=== PATIENT | male | born 1970 | race Caucasian/White ===

== ENCOUNTER 2016-08-11 21:40 | Emergency (ER) | payer BC, OTHER ==
[~2016-08-11] VITALS: Ht 177.8 cm; Wt 113.4 kg
[~2016-08-11 21:40] MED LIST: CEFUROXIME AXE250 MG PO; CLARITIN10 MG PO; CLINDAMYCIN HC300 MG PO; FLAGYL500 MG PO; FLOMAX0.4 MG PO; HYDROCODONE BIT1 T11 PO; LEVOFLOXACIN500 MG PO; NATURE'S BLEND F1 MG PO; PERCOCET 325 MG1 TA3 PO; PERCOCET 325 MG1 TA5 PO; PERCOCET 325 MG1 TA7 PO; PROBIOTIC250 MG PO; SIMVASTATIN40 MG PO; SULFASALAZINE500 M1 PO; [UNRECOGNIZED DRUG - OTHER] PO
[2016-08-11 21:54] VITALS: BP 152/86
[2016-08-11 22:52] LABS: BASO # 0.1 10*3/uL (0.0-0.1); BASO % 0.4 % (0.0-1.0); EOS # 0.2 10*3/uL (0.0-0.4); EOS % 1.7 % (1.0-4.0); HEMATOCRIT 45.3 % (42.0-52.0); HEMOGLOBIN 15.4 g/dl (14.0-18.0); LYMPH # 2.7 10*3/uL (1.3-4.4); LYMPH % 20.2 % (27.0-41.0); MEAN CELL VOLUME 86.8 fl (80.0-94.0); MEAN CORPUSCULAR HGB 29.5 pg (27.0-31.0); MEAN PLATELET VOLUME 10.5 fl (9.6-12.3); MONO # 1.4 10*3/uL (0.1-1.0); MONO % 10.4 % (3.0-9.0); NEUT # 9.1 10*3/uL (2.3-7.9); NEUT % 67.1 % (47.0-73.0); PLATELET COUNT AUTOMATED 237 10*3/uL (130-400); RED BLOOD COUNT 5.22 10*6/uL (4.50-5.90); RED CELL DISTRI WIDTH 13.2 % (0-14.5); WHITE BLOOD COUNT 13.5 10*3/uL (4.8-10.8)
[2016-08-11 23:04] LABS: BUN 13 mg/dl (7-24); C-REACTIVE PROTEIN 3.64 MG/DL (0-0.3); CARBON DIOXIDE 25 mmol/L (21-32); CHLORIDE 109 mmol/L (98-107); EST GLOM FILT AFRICAN AMERICAN > 60 ml/min; GLUCOSE 101 mg/dL (65-99); POTASSIUM 3.6 mmol/L (3.5-5.1); SODIUM 142 mmol/L (136-145); URIC ACID 6.5 mg/dL (3.5-7.2)
[2016-08-12] MEDS ORDERED: NORCO 5-325 TA1 EACH PO (00:18)
[2016-08-12] MEDS ORDERED: CEFDINIR300 MG PO (00:18)
[2016-08-12] MEDS ORDERED: PROBIOTIC1 EAC2 PO (00:18)
[2016-08-12] MEDS ORDERED: BACTRIM DS 8001 TA1 PO (00:18)
== END 2016-08-12 00:47 | disposition home or self-care (01) ==
LOC: ED 21:40
PROVIDERS: Emergency Medicine Emergency Medical Services
DX: L03.114 Cellulitis of left upper limb (principal); F17.200 Nicotine dependence, unspecified, uncomplicated; E78.5 Hyperlipidemia, unspecified; Z90.49 Acquired absence of other specified parts of digestive tract; Z79.899 Other long term (current) drug therapy

== ENCOUNTER 2016-08-13 21:54 | Inpatient (IN) | payer BC, OTHER ==
[~2016-08-13] VITALS: Ht 177.8 cm; Wt 118.6 kg
[~2016-08-13 21:54] MED LIST changes: +BACTRIM DS 8001 TA1 PO; +CEFDINIR300 MG PO; +NORCO 5-325 TA1 EACH PO; +PROBIOTIC1 EAC2 PO
[2016-08-13 22:18] VITALS: BP 151/87
[2016-08-13 23:03] LABS: BASO # 0.1 10*3/uL (0.0-0.1); BASO % 0.4 % (0.0-1.0); EOS # 0.2 10*3/uL (0.0-0.4); EOS % 1.6 % (1.0-4.0); HEMATOCRIT 41.9 % (42.0-52.0); HEMOGLOBIN 13.9 g/dl (14.0-18.0); LYMPH # 2.5 10*3/uL (1.3-4.4); LYMPH % 22.1 % (27.0-41.0); MEAN CELL VOLUME 88.8 fl (80.0-94.0); MEAN CORPUSCULAR HGB 29.4 pg (27.0-31.0); MEAN CORPUSCULAR HGB CONC 33.2 g/dl (33.0-37.0); MEAN PLATELET VOLUME 10.7 fl (9.6-12.3); MONO # 0.9 10*3/uL (0.1-1.0); MONO % 8.4 % (3.0-9.0); NEUT # 7.5 10*3/uL (2.3-7.9); NEUT % 67.2 % (47.0-73.0); PLATELET COUNT AUTOMATED 214 10*3/uL (130-400); RED BLOOD COUNT 4.72 10*6/uL (4.50-5.90); RED CELL DISTRI WIDTH 13.2 % (0-14.5); WHITE BLOOD COUNT 11.1 10*3/uL (4.8-10.8)
[2016-08-13 23:19] LABS: ALBUMIN 3.3 gm/dl (3.1-4.5); ALKALINE PHOSPHATASE 81 U/L (45-117); BILIRUBIN, TOTAL 0.2 mg/dl (0.2-1.0); BUN 16 mg/dl (7-24); CARBON DIOXIDE 27 mmol/L (21-32); CHLORIDE 108 mmol/L (98-107); EST GLOM FILT AFRICAN AMERICAN > 60 ml/min; GLUCOSE 111 mg/dL (65-99); POTASSIUM 4.3 mmol/L (3.5-5.1); SGOT/AST 19 IU/L (3-35); SGPT/ALT 19 U/L (12-78); SODIUM 143 mmol/L (136-145)
[2016-08-13 23:50] VITALS: BP 151/89
[2016-08-14 06:03] LABS: BASO % 0.4 % (0.0-1.0); EOS # 0.2 10*3/uL (0.0-0.4); EOS % 2.1 % (1.0-4.0); HEMATOCRIT 43.5 % (42.0-52.0); HEMOGLOBIN 14.3 g/dl (14.0-18.0); LYMPH % 28.3 % (27.0-41.0); MEAN CELL VOLUME 89.9 fl (80.0-94.0); MEAN CORPUSCULAR HGB 29.5 pg (27.0-31.0); MEAN CORPUSCULAR HGB CONC 32.9 g/dl (33.0-37.0); MEAN PLATELET VOLUME 10.8 fl (9.6-12.3); MONO # 0.9 10*3/uL (0.1-1.0); MONO % 8.8 % (3.0-9.0); NEUT # 6.3 10*3/uL (2.3-7.9); NEUT % 60.1 % (47.0-73.0); PLATELET COUNT AUTOMATED 215 10*3/uL (130-400); RED BLOOD COUNT 4.84 10*6/uL (4.50-5.90); RED CELL DISTRI WIDTH 13.1 % (0-14.5); WHITE BLOOD COUNT 10.5 10*3/uL (4.8-10.8)
[2016-08-14 06:22] LABS: ALKALINE PHOSPHATASE 76 U/L (45-117); BILIRUBIN, TOTAL 0.4 mg/dl (0.2-1.0); BUN 15 mg/dl (7-24); CARBON DIOXIDE 25 mmol/L (21-32); CHLORIDE 110 mmol/L (98-107); CHOLESTEROL 200 mg/dL (<200); EST GLOM FILT AFRICAN AMERICAN > 60 ml/min; FREE T4 1.08 ng/dl (0.76-1.46); GLUCOSE 85 mg/dL (65-99); HDL CHOLESTEROL 36 mg/dl (40-60); LDL CHOLESTEROL 147 mg/dL (9-159); MAGNESIUM 2.2 mg/dL (1.5-2.1); PHOSPHOROUS 3.5 mg/dL (2.5-4.9); SGOT/AST 15 IU/L (3-35); SGPT/ALT 19 U/L (12-78); SODIUM 144 mmol/L (136-145); TOTAL PROTEIN 6.6 gm/dL (6.4-8.2); TRIGLYCERIDES 86 mg/dl (<150); VLDL CHOLESTEROL 17 mg/dL (6-40)
[2016-08-14 06:35] LABS: INTERNATIONAL NORM RATIO 0.9 (2.0-3.5); PROTHROMBIN TIME 9.5 SECONDS (9.0-12.4)
[2016-08-14 07:32] LABS: HEMOGLOBIN A1c 5.6 % (4.8-5.6)
[2016-08-14 08:00] VITALS: BP 136/77
[2016-08-14 09:17] LABS: FOLIC ACID 11.11 ng/mL (>5.38); VITAMIN D, 25-HYDROXY 19.6 ng/mL (30-100)
[2016-08-14 12:00] VITALS: BP 115/63
[2016-08-14 16:00] VITALS: BP 121/64
[2016-08-14 20:00] VITALS: BP 128/66
[2016-08-15] VITALS: BP 109/57
[2016-08-15 08:00] VITALS: BP 151/84
[2016-08-15 12:00] VITALS: BP 130/66
[2016-08-15] MEDS ORDERED: DALVANCE500 MG IV (15:55)
[2016-08-15 16:00] VITALS: BP 144/83
[2016-08-15 20:00] VITALS: BP 155/82
[2016-08-16] VITALS: BP 115/59
[2016-08-16 08:00] VITALS: BP 138/88
[2016-08-16] MEDS ORDERED: DALVANCE500 MG IV (13:14)
[2016-08-16] MEDS ORDERED: BACTRIM DS 8001 TAB PO (13:16)
[2016-08-16] MEDS ORDERED: D-1000 185 MG-11 TAB PO (13:16)
== END 2016-08-16 13:57 | disposition home or self-care (01) | DRG 872 ==
LOC: ED 21:54 → EDHOLD 23:11 → 4E 23:46
PROVIDERS: Emergency Medicine Emergency Medical Services; Family Medicine; Internal Medicine
PROC: 0R9M3ZX Drainage of Left Elbow Joint, Percutaneous Approach, Diagnostic (ICD-10-PCS; principal; 2016-08-15)
DX: A41.9 Sepsis, unspecified organism (principal); K51.00 Ulcerative (chronic) pancolitis without complications; L03.114 Cellulitis of left upper limb; D72.810 Lymphocytopenia; F17.200 Nicotine dependence, unspecified, uncomplicated; F17.210 Nicotine dependence, cigarettes, uncomplicated; R73.9 Hyperglycemia, unspecified; E66.01 Morbid (severe) obesity due to excess calories; M70.22 Olecranon bursitis, left elbow; Z80.42 Family history of malignant neoplasm of prostate; Z79.899 Other long term (current) drug therapy; Z90.49 Acquired absence of other specified parts of digestive tract; Z71.6 Tobacco abuse counseling; Z68.37 Body mass index [BMI] 37.0-37.9, adult

== ENCOUNTER 2017-04-10 00:17 | Inpatient (IN) | payer BC, OTHER ==
[~2017-04-10] VITALS: Ht 177.8 cm; Wt 121.2 kg
--- NOTE | ~2017-04-10 | O ---
[place], [place] OPERATIVE NOTE [id number] UN[facility] #: [id number] ROOM: 526 DOCTOR: ANKIT RODRIGUEZMADAI BIRTHDATE: [birth year] DOS: 04/11/2017 HISTORY OF PRESENT ILLNESS: The patient was admitted with abdominal pain, radiation of pain to his testicular sac and quite distressed with diarrhea cramp, abdominal pain, known with a history of ulcerative colitis, has been on balsalazide 750 mg 2 tablets t.i.d. He has not been that compliant with his medical therapy. He has been admitted with a workup of CT scan of abdomen and pelvis included and was found to have a fatty mucosal infiltrate, sequelae chronic inflammation and pericolonic stranding, no abscess formation. His lactic acid was 0.7. His white blood cell initially was 13 with H and H of 14 and 41. Comprehensive metabolic panel was within normal limits. GFR greater than 60, of course C-reactive protein elevated troponin normal. Chest x-ray, of course, was no infiltrated pathology. His urinalysis on the other hand was evaluated because of his pelvic pain and negative urine. PROCEDURE: Today's procedure part of investigation is colonoscopy plus biopsies. PREMEDICATION: Versed and Diprivan. SCOPE: Olympus folding colonoscope 10L video. REPORT: After putting the patient in left lateral position and application of lubricant to the scope, the scope was introduced. Thereafter, under direct visualization, advanced through the length of colon without difficulty. Base of the cecum explored, appendiceal orifice identified, ileocecal valve was defined and photographed. Multiple biopsies from numerous ulcerations in the right side of the colon was obtained. Evidence of intense colitis exists in the right side consistent with ulcerative colitis and it is reduced as I withdraw the scope towards the rectum. ADDENDUM As I recall, this patient 2 years ago has had a colonoscopy and he had roblero-ulcerative colitis and his degree of intensity of colitis at the present time is far better than past colonoscopic evaluation. IMPRESSION: Ulcerative colitis with most intense expression on the ascending colon and partially in transverse colon with presence of colitis throughout the colon without any ulcerations on the left side. PLAN AND DISCUSSION: The patient is going to stay on balsalazide 2 tablets 750 mg 3 times a day. The patient's epididymitis is going to be addressed with Vibramycin and we are going to remain fearful of the fact that he may end up with Clostridium difficile colitis as a complication in order to at least cover for such a mishap. We are going to keep the patient on Florastor 250 mg p.o. b.i.d. and hoping that Clostridium difficile would not happen. As far as his diet is concerned, he is going to be back on his soft diet and as far as antibiotic coverage is going to be, we are going to keep him on metronidazole 500 mg t.i.d. Otherwise, we are going to avoid other antibiotics if possible. [place], [place] OPERATIVE NOTE NAME: KASH BUTT UNIT #: [id number] ROOM: 526 DOCTOR: ANKIT RODRIGUEZ,MADAI BIRTHDATE: [birth year] Thank you very much indeed for your kind referral. MADAI PHAM MD CM:OPRECORD:OPERATIVE NOTE [id number] MADAI PHAM MD 04/11/17 1758 interface
--- NOTE | ~2017-04-10 | O ---
[place], [place] OPERATIVE NOTE NAME: KASH BUTT UNIT #: [id number] ROOM: 526 DOCTOR: ANKIT RODRIGUEZ,MADAI BIRTHDATE: [birth year] DOS: ADDENDUM As I recall, this patient 2 years ago has had a colonoscopy and he had roblero-ulcerative colitis and his degree of intensity of colitis at the present time is far better than past colonoscopic evaluation. IMPRESSION: Ulcerative colitis with most intense expression on the ascending colon and partially in transverse colon with presence of colitis throughout the colon without any ulcerations on the left side. PLAN AND DISCUSSION: The patient is going to stay on balsalazide 2 tablets 750 mg 3 times a day. The patient's epididymitis is going to be addressed with Vibramycin and we are going to remain fearful of the fact that he may end up with Clostridium difficile colitis as a complication in order to at least cover for such a mishap. We are going to keep the patient on Florastor 250 mg p.o. b.i.d. and hoping that Clostridium difficile would not happen. As far as his diet is concerned, he is going to be back on his soft diet and as far as antibiotic coverage is going to be, we are going to keep him on metronidazole 500 mg t.i.d. Otherwise, we are going to avoid other antibiotics if possible. Thank you very much indeed for your kind referral. MADAI PHAM MD CM:OPRECORD:OPERATIVE NOTE [id number] MADAI PHAM MD 04/11/17 2365 interface
[~2017-04-10 00:17] MED LIST changes: +BACTRIM DS 8001 TAB PO; +D-1000 185 MG-11 TAB PO; +DALVANCE500 MG IV
[2017-04-10 00:29] VITALS: BP 161/98
[2017-04-10 01:01] LABS: BASO # 0.1 10*3/uL (0.0-0.1); BASO % 0.6 % (0.0-1.0); EOS # 0.3 10*3/uL (0.0-0.4); HEMATOCRIT 41.9 % (42.0-52.0); HEMOGLOBIN 14.4 g/dl (14.0-18.0); LYMPH # 2.4 10*3/uL (1.3-4.4); LYMPH % 17.8 % (27.0-41.0); MEAN CELL VOLUME 87.3 fl (80.0-94.0); MEAN CORPUSCULAR HGB CONC 34.4 g/dl (33.0-37.0); MEAN PLATELET VOLUME 9.8 fl (9.6-12.3); MONO # 1.2 10*3/uL (0.1-1.0); NEUT # 9.4 10*3/uL (2.3-7.9); NEUT % 70.3 % (47.0-73.0); PLATELET COUNT AUTOMATED 376 10*3/uL (130-400); RED CELL DISTRI WIDTH 12.3 % (0-14.5); WHITE BLOOD COUNT 13.4 10*3/uL (4.8-10.8)
[2017-04-10 01:23] LABS: ALKALINE PHOSPHATASE 95 U/L (45-117); CHLORIDE 102 mmol/L (98-107); CREATININE 1.03 mg/dL (0.70-1.30); POTASSIUM 3.5 mmol/L (3.5-5.1); SGOT/AST 23 IU/L (3-35); SGPT/ALT 31 U/L (12-78); SODIUM 137 mmol/L (136-145); TOTAL PROTEIN 7.6 gm/dL (6.4-8.2)
[2017-04-10 01:25] LABS: BUN 16 mg/dl (7-24)
[2017-04-10 01:30] LABS: TROPONIN I < 0.015 ng/ml (<0.045)
[2017-04-10 02:04] LABS: BILIRUBIN NEGATIVE (NEGATIVE); BLOOD NEGATIVE (NEGATIVE); CLARITY SL CLOUDY (CLEAR); COLOR YELLOW (YELLOW); GLUCOSE NEGATIVE (NEGATIVE); KETONE NEGATIVE (NEGATIVE); LEUKO ESTERASE NEGATIVE (NEGATIVE); NITRITE NEGATIVE (NEGATIVE); UROBILINOGEN 0.2 E.U./dl (0.2-1.0)
[2017-04-10 02:10] LABS: MUCOUS TRACE; RBC 0-2 rbc/hpf (0-2); WBC 0-2 wbc/hpf (0-5)
[2017-04-10 02:30] VITALS: BP 150/70
[2017-04-10 03:00] VITALS: BP 124/72
[2017-04-10 04:18] LABS: BASO # 0.1 10*3/uL (0.0-0.1); BASO % 0.5 % (0.0-1.0); EOS # 0.2 10*3/uL (0.0-0.4); EOS % 1.5 % (1.0-4.0); LYMPH # 2.3 10*3/uL (1.3-4.4); LYMPH % 15.8 % (27.0-41.0); MEAN CELL VOLUME 87.6 fl (80.0-94.0); MEAN CORPUSCULAR HGB 29.2 pg (27.0-31.0); MEAN CORPUSCULAR HGB CONC 33.3 g/dl (33.0-37.0); MEAN PLATELET VOLUME 9.6 fl (9.6-12.3); MONO # 1.1 10*3/uL (0.1-1.0); MONO % 7.8 % (3.0-9.0); NEUT # 10.5 10*3/uL (2.3-7.9); PLATELET COUNT AUTOMATED 347 10*3/uL (130-400); RED BLOOD COUNT 4.45 10*6/uL (4.50-5.90); RED CELL DISTRI WIDTH 12.2 % (0-14.5); WHITE BLOOD COUNT 14.2 10*3/uL (4.8-10.8)
[2017-04-10 04:44] LABS: ALBUMIN 2.8 gm/dl (3.1-4.5); ALKALINE PHOSPHATASE 84 U/L (45-117); BUN 15 mg/dl (7-24); CHLORIDE 104 mmol/L (98-107); CHOLESTEROL 206 mg/dL (<200); CREATININE 0.95 mg/dL (0.70-1.30); HDL CHOLESTEROL 28 mg/dl (40-60); LDL CHOLESTEROL 150 mg/dL (9-159); PHOSPHOROUS 3.7 mg/dL (2.5-4.9); POTASSIUM 4.1 mmol/L (3.5-5.1); SGOT/AST 21 IU/L (3-35); SGPT/ALT 27 U/L (12-78); SODIUM 137 mmol/L (136-145); TOTAL PROTEIN 6.8 gm/dL (6.4-8.2); TRIGLYCERIDES 138 mg/dl (<150); VLDL CHOLESTEROL 28 mg/dL (6-40)
[2017-04-10 07:08] LABS: VITAMIN D, 25-HYDROXY 15.6 ng/mL (30-100)
[2017-04-10 08:00] VITALS: BP 126/74
[2017-04-10] MEDS ORDERED: SULFASALAZINE500 M1 PO (11:06)
[2017-04-10] MEDS ORDERED: BALSALAZIDE DI750 MG PO (11:13)
[2017-04-10 12:00] VITALS: BP 129/55
[2017-04-10 16:00] VITALS: BP 100/57
[2017-04-11] VITALS (9 sets, daily range): BP systolic 99–137; BP diastolic 53–86
[2017-04-11 06:51] LABS: BASO # 0.1 10*3/uL (0.0-0.1); BASO % 0.5 % (0.0-1.0); EOS # 0.2 10*3/uL (0.0-0.4); EOS % 2.2 % (1.0-4.0); HEMATOCRIT 38.2 % (42.0-52.0); HEMOGLOBIN 12.5 g/dl (14.0-18.0); LYMPH # 1.3 10*3/uL (1.3-4.4); LYMPH % 13.1 % (27.0-41.0); MEAN CELL VOLUME 87.8 fl (80.0-94.0); MEAN CORPUSCULAR HGB 28.7 pg (27.0-31.0); MEAN CORPUSCULAR HGB CONC 32.7 g/dl (33.0-37.0); MEAN PLATELET VOLUME 9.8 fl (9.6-12.3); MONO % 9.5 % (3.0-9.0); NEUT # 7.5 10*3/uL (2.3-7.9); NEUT % 74.3 % (47.0-73.0); PLATELET COUNT AUTOMATED 323 10*3/uL (130-400); RED BLOOD COUNT 4.35 10*6/uL (4.50-5.90); RED CELL DISTRI WIDTH 12.2 % (0-14.5); WHITE BLOOD COUNT 10.1 10*3/uL (4.8-10.8)
[2017-04-11 07:04] LABS: BUN 7 mg/dl (7-24); CHLORIDE 103 mmol/L (98-107); POTASSIUM 3.9 mmol/L (3.5-5.1); SODIUM 137 mmol/L (136-145)
[2017-04-12] VITALS: BP 100/54
[2017-04-12 07:15] LABS: BASO # 0.1 10*3/uL (0.0-0.1); BASO % 0.6 % (0.0-1.0); EOS # 0.2 10*3/uL (0.0-0.4); EOS % 2.3 % (1.0-4.0); HEMATOCRIT 39.4 % (42.0-52.0); HEMOGLOBIN 13.3 g/dl (14.0-18.0); LYMPH # 1.6 10*3/uL (1.3-4.4); LYMPH % 15.8 % (27.0-41.0); MEAN CELL VOLUME 87.8 fl (80.0-94.0); MEAN CORPUSCULAR HGB 29.6 pg (27.0-31.0); MEAN CORPUSCULAR HGB CONC 33.8 g/dl (33.0-37.0); MEAN PLATELET VOLUME 9.7 fl (9.6-12.3); MONO % 9.6 % (3.0-9.0); NEUT # 7.4 10*3/uL (2.3-7.9); NEUT % 71.4 % (47.0-73.0); PLATELET COUNT AUTOMATED 328 10*3/uL (130-400); RED BLOOD COUNT 4.49 10*6/uL (4.50-5.90); RED CELL DISTRI WIDTH 12.2 % (0-14.5); WHITE BLOOD COUNT 10.4 10*3/uL (4.8-10.8)
[2017-04-12 08:00] VITALS: BP 134/73
[2017-04-12 12:00] VITALS: BP 138/92
[2017-04-12 16:00] VITALS: BP 122/78
[2017-04-12 20:00] VITALS: BP 121/74
[2017-04-13] VITALS: BP 110/69
[2017-04-13 08:00] VITALS: BP 120/69
[2017-04-13 12:00] VITALS: BP 148/74
[2017-04-13] MEDS ORDERED: VITAMIN D5000 UNI1 PO (12:32)
[2017-04-13] MEDS ORDERED: FLAGYL500 MG PO (12:32)
[2017-04-13] MEDS ORDERED: FLORASTOR250 MG PO (12:32)
[2017-04-13] MEDS ORDERED: DOXYCYCLINE100 M3 PO (12:32)
[2017-04-13] MEDS ORDERED: PREDNISONE10 MG PO (12:33)
== END 2017-04-13 13:33 | disposition home or self-care (01) | DRG 872 ==
LOC: ED 00:17 → EDHOLD 02:32 → 5E 02:32 → EDBEDREQ 02:38 → EDBEDREQSVC 02:38 → 5E 02:39
PROVIDERS: Family Medicine; Hospitalist; Student in an Organized Health Care Education/Training Program
PROC: 0DBE8ZX Excision of Large Intestine, Via Natural or Artificial Opening Endoscopic, Diagnostic (ICD-10-PCS; principal; 2017-04-11)
DX: A41.9 Sepsis, unspecified organism (principal); K51.919 Ulcerative colitis, unspecified with unspecified complications; E66.9 Obesity, unspecified; R73.9 Hyperglycemia, unspecified; F17.200 Nicotine dependence, unspecified, uncomplicated; Z80.42 Family history of malignant neoplasm of prostate; Z71.6 Tobacco abuse counseling; Z90.49 Acquired absence of other specified parts of digestive tract; Z72.89 Other problems related to lifestyle; Z68.38 Body mass index [BMI] 38.0-38.9, adult

== ENCOUNTER → 2018-06-02 | Day surgery (SDC) | payer BC, OTHER ==
[2018-05-29 09:47] LABS: BASO # 0.1 10*3/uL (0.0-0.1); BASO % 0.6 % (0.0-1.0); EOS # 0.2 10*3/uL (0.0-0.4); EOS % 2.2 % (1.0-4.0); HEMATOCRIT 49.9 % (42.0-52.0); HEMOGLOBIN 15.9 g/dl (14.0-18.0); LYMPH # 2.4 10*3/uL (1.3-4.4); LYMPH % 28.1 % (27.0-41.0); MEAN CELL VOLUME 89.3 fl (80.0-94.0); MEAN CORPUSCULAR HGB 28.4 pg (27.0-31.0); MEAN CORPUSCULAR HGB CONC 31.9 g/dl (33.0-37.0); MEAN PLATELET VOLUME 10.3 fl (9.6-12.3); MONO # 0.6 10*3/uL (0.1-1.0); MONO % 6.7 % (3.0-9.0); NEUT # 5.2 10*3/uL (2.3-7.9); PLATELET COUNT AUTOMATED 282 10*3/uL (130-400); RED BLOOD COUNT 5.59 10*6/uL (4.50-5.90); RED CELL DISTRI WIDTH 12.9 % (0-14.5); WHITE BLOOD COUNT 8.4 10*3/uL (4.8-10.8)
[2018-05-29 10:11] LABS: BUN 19 mg/dl (7-24); CHLORIDE 105 mmol/L (98-107); CREATININE 1.07 mg/dL (0.70-1.30); POTASSIUM 4.4 mmol/L (3.5-5.1); SODIUM 139 mmol/L (136-145)
[~2018-06-02] VITALS: Ht 177.8 cm; Wt 128.8 kg
[~2018-06-02] MED LIST changes: +BALSALAZIDE DI750 MG PO; +DOXYCYCLINE100 M3 PO; +FLORASTOR250 MG PO; +PREDNISONE10 MG PO; +TRAMADOL HCL50 MG PO; +VITAMIN D5000 UNI1 PO
[2018-06-02 11:54] VITALS: BP 131/100
[2018-06-02 13:33] VITALS: BP 135/78
[2018-06-02 13:48] VITALS: BP 124/77
[2018-06-02 14:03] VITALS: BP 130/83
[2018-06-02 14:37] VITALS: BP 136/88
== END | disposition home or self-care (01) ==
LOC: SDC 05-29 15:30
DX: L72.0 Epidermal cyst (principal); F17.210 Nicotine dependence, cigarettes, uncomplicated; G47.30 Sleep apnea, unspecified; E66.9 Obesity, unspecified; Z68.41 Body mass index [BMI] 40.0-44.9, adult; Z88.0 Allergy status to penicillin; Z88.8 Allergy status to other drugs, medicaments and biological substances; Z79.899 Other long term (current) drug therapy; Z87.442 Personal history of urinary calculi; Z90.49 Acquired absence of other specified parts of digestive tract; Z72.89 Other problems related to lifestyle; Z98.890 Other specified postprocedural states; Z83.3 Family history of diabetes mellitus; Z82.49 Family history of ischemic heart disease and other diseases of the circulatory system

== ENCOUNTER → 2020-03-06 | Outpatient (CLI) | payer BC | END | disposition home or self-care (01) | LOC: COVID19 09:13 | PROVIDERS: ATTEND Family Medicine | DX: U07.1 COVID-19 (principal) ==

== ENCOUNTER → 2020-04-06 | Outpatient (CLI) | payer BC, OTHER ==
[2020-04-06 09:57] LABS: BASO # 0.1 10*3/uL (0.0-0.1); BASO % 0.4 % (0.0-1.0); EOS # 0.1 10*3/uL (0.0-0.4); EOS % 1.1 % (1.0-4.0); HEMATOCRIT 47.2 % (42.0-52.0); LYMPH # 1.9 10*3/uL (1.3-4.4); LYMPH % 16.6 % (27.0-41.0); MEAN CELL VOLUME 90.1 fl (80.0-94.0); MEAN CORPUSCULAR HGB CONC 32.2 g/dl (33.0-37.0); MONO # 0.9 10*3/uL (0.1-1.0); MONO % 7.4 % (3.0-9.0); NEUT # 8.5 10*3/uL (2.3-7.9); NEUT % 74.2 % (47.0-73.0); PLATELET COUNT AUTOMATED 312 10*3/uL (130-400); RED BLOOD COUNT 5.24 10*6/uL (4.50-5.90); RED CELL DISTRI WIDTH 12.6 % (0-14.5); WHITE BLOOD COUNT 11.4 10*3/uL (4.8-10.8)
[2020-04-06 10:04] LABS: BILIRUBIN Negative (Negative); BLOOD Negative (Negative); CLARITY Clear (Clear); COLOR Yellow (Yellow); GLUCOSE Negative (Negative); KETONE Negative (Negative); LEUKO ESTERASE Trace (Negative); NITRITE Negative (Negative); SPECIFIC GRAVITY 1.015 (1.001-1.030); UROBILINOGEN 0.2 E.U./dl (0.0-1.0)
[2020-04-06 10:25] LABS: ALBUMIN 3.2 gm/dl (3.1-4.5); ALKALINE PHOSPHATASE 99 U/L (45-117); BUN 16 mg/dl (7-24); CHLORIDE 106 mmol/L (98-107); CREATININE 0.94 mg/dL (0.70-1.30); POTASSIUM 4.3 mmol/L (3.5-5.1); SGOT/AST 8 IU/L (3-35); SGPT/ALT 21 U/L (12-78); SODIUM 137 mmol/L (136-145); TOTAL PROTEIN 7.6 gm/dL (6.4-8.2)
[2020-04-06 12:01] LABS: BACTERIA TRACE
== END | disposition home or self-care (01) ==
LOC: CT 08:54 → LAB 08:54 → CT 09:00
PROVIDERS: ATTEND Internal Medicine
DX: R10.9 Unspecified abdominal pain (principal)

== ENCOUNTER → 2020-10-31 | Outpatient (CLI) | payer BC ==
[2020-10-31 11:39] LABS: BASO # 0.1 10*3/uL (0.0-0.1); BASO % 0.9 % (0.0-1.0); EOS # 0.1 10*3/uL (0.0-0.4); EOS % 0.7 % (1.0-4.0); HEMATOCRIT 50.3 % (42.0-52.0); LYMPH # 1.6 10*3/uL (1.3-4.4); LYMPH % 16.4 % (27.0-41.0); MEAN CORPUSCULAR HGB 29.9 pg (27.0-31.0); MEAN CORPUSCULAR HGB CONC 33.2 g/dl (33.0-37.0); MEAN PLATELET VOLUME 9.9 fl (9.6-12.3); MONO # 0.8 10*3/uL (0.1-1.0); MONO % 7.8 % (3.0-9.0); NEUT # 7.4 10*3/uL (2.3-7.9); NEUT % 73.9 % (47.0-73.0); PLATELET COUNT AUTOMATED 292 10*3/uL (130-400); RED BLOOD COUNT 5.59 10*6/uL (4.50-5.90); RED CELL DISTRI WIDTH 13.2 % (0-14.5); RETICULOCYTE % 0.96 % (0.50-2.50)
[2020-10-31 11:56] LABS: ALBUMIN 3.7 gm/dl (3.1-4.5); ALKALINE PHOSPHATASE 111 U/L (45-117); BUN 14 mg/dl (7-24); CHLORIDE 108 mmol/L (98-107); CHOLESTEROL 305 mg/dL (<200); CREATININE 0.98 mg/dL (0.70-1.30); GAMMA GLUTAMYL TRANSPEPTIDASE 38 U/L (15-85); IRON 128 ug/dL (65-175); LDL CHOLESTEROL 227 mg/dL (9-159); POTASSIUM 4.7 mmol/L (3.5-5.1); SGOT/AST 29 IU/L (3-35); SGPT/ALT 43 U/L (12-78); SODIUM 139 mmol/L (136-145); TOTAL IRON BINDING CAPACITY 427 ug/dl (250-450); TOTAL PROTEIN 8.1 gm/dL (6.4-8.2); TRIGLYCERIDES 196 mg/dl (<150)
[2020-10-31 12:35] LABS: VITAMIN D, 25-HYDROXY 29.5 ng/mL (30-100)
[2020-10-31 12:36] LABS: FERRITIN 70.9 ng/mL (22.0-322.0)
[2020-11-03 00:06] LABS: IGG P18 AB Absent (.); IGG P23 AB Absent (.); IGG P28 AB Absent (.); IGG P30 AB Absent (.); IGG P39 AB Absent (.); IGG P41 AB Absent (.); IGG P45 AB Absent (.); IGG P58 AB Absent (.); IGG P63 AB Absent (.); IGG P66 AB Absent (.); IGM P23 AB Absent (.); IGM P39 AB Absent (.); IGM P41 AB Absent (.); LYME IGG WB INTERPRETATION Negative (.); LYME IGM WB INTERPRETATION Negative (.); LYME REFLEX CHARGE CHG
== END | disposition home or self-care (01) ==
LOC: LAB 11:06
PROVIDERS: ATTEND Family Medicine
DX: E78.5 Hyperlipidemia, unspecified (principal); R79.89 Other specified abnormal findings of blood chemistry; R53.83 Other fatigue; R74.8 Abnormal levels of other serum enzymes; E55.9 Vitamin D deficiency, unspecified

== ENCOUNTER 2023-09-27 19:17 | Emergency (ER) | payer OTHER ==
[2023-09-27] MEDS ORDERED: Midazolam Hydrochloride 2 MG/2 ML VIAL IV ONE (19:25)
[2023-09-27 19:35] LABS: HEMATOCRIT 44.9 % (42.0-52.0); MEAN CELL VOLUME 89.3 fl (80.0-94.0); MEAN CORPUSCULAR HGB 31.4 pg (27.0-31.0); MEAN CORPUSCULAR HGB CONC 35.2 g/dl (33.0-37.0); MEAN PLATELET VOLUME 9.9 fl (9.6-12.3); PLATELET COUNT AUTOMATED 259 10*3/uL (130-400); RED BLOOD COUNT 5.03 10*6/uL (4.50-5.90); RED CELL DISTRI WIDTH 13.5 % (0-14.5); WHITE BLOOD COUNT 13.1 10*3/uL (4.8-10.8)
[2023-09-27 19:37] LABS: MANUAL DIFF REFLEX YES
[2023-09-27 19:45] LABS: ACT PARTIAL THROMBO TIME 25.2 SECONDS (20.0-32.1)
[2023-09-27 19:52] LABS: ALKALINE PHOSPHATASE 96 U/L (46-116); BUN 13 mg/dl (9-23); CHLORIDE 108 mmol/L (98-107); ETHYL ALCOHOL 124.8 mg/dl (<3); LIPASE 47 U/L (12-53); POTASSIUM 3.9 mmol/L (3.4-5.1); SGPT/ALT 22 U/L (5-49); TOTAL PROTEIN 7.2 gm/dL (6.0-8.0)
[2023-09-27 20:03] LABS: PLATELET SUFFICIENCY NORMAL (NORMAL); TOTAL CELLS COUNTED 100 #CELLS
[2023-09-27] MEDS ORDERED: SODIUM CHLORIDE 0.9% 1,000 ML IV ONE (20:10)
[2023-09-27] MEDS ORDERED: SODIUM CHLORIDE 0.9% 1,000 ML IV SCH (20:10)
[2023-09-27] MEDS ORDERED: Ketorolac Tromethamine 30 MG/ML VIAL IV ONE (20:35)
[2023-09-27] MEDS ORDERED: Thiamine 200 MG/2 ML VIAL IV ONE (20:35)
[2023-09-27] MEDS ORDERED: Cyclobenzaprine Hydrochlorid 10 MG TAB PO ONE (20:35)
[2023-09-27] MEDS ORDERED: HEPARIN SODIUM 25,000 UNITS/250 ML BAG IV SCH (21:55)
[2023-09-27] MEDS ORDERED: ATORVASTATIN CALCIUM 80 MG TAB PO SCH (21:55)
[2023-09-27] MEDS ORDERED: NITROGLYCERIN 1 IN PACKET T SCH (21:55)
[2023-09-27 23:07] LABS: BILIRUBIN Negative (Negative); BLOOD Negative (Negative); CLARITY Clear (Clear); COLOR Yellow (Yellow); GLUCOSE Negative (Negative); KETONE Negative (Negative); LEUKO ESTERASE Negative (Negative); NITRITE Negative (Negative); PH 5.5 (4.5-8.0); SPECIFIC GRAVITY <= 1.005 (1.001-1.030); UROBILINOGEN 0.2 E.U./dl (0.0-1.0)
[2023-09-27 23:29] LABS: WBC 0-2 wbc/hpf (0-5)
[2023-09-28 00:12] LABS: URINE AMPHETAMINES Negative (1000ng/ml); URINE BARBITURATES Negative (200ng/ml); URINE BENZODIAZEPINES Negative (200ng/ml); URINE CANNABINOIDS (THC) Negative (50ng/ml); URINE COCAINE Negative (300ng/ml); URINE METHADONE Negative (300ng/ml); URINE OPIATES Negative (300ng/ml); URINE PHENCYCLIDINE Negative (25ng/ml)
[2023-09-28 01:18] VITALS: BP 119/79
== END 2023-09-28 02:03 | disposition short-term general hospital (02) ==
LOC: ED 19:17
PROVIDERS: Internal Medicine
DX: I21.4 Non-ST elevation (NSTEMI) myocardial infarction (principal); M79.602 Pain in left arm; M79.601 Pain in right arm; F10.10 Alcohol abuse, uncomplicated; Z87.442 Personal history of urinary calculi; Z72.0 Tobacco use; Z90.49 Acquired absence of other specified parts of digestive tract; Z98.890 Other specified postprocedural states

== ENCOUNTER → 2023-10-20 | Outpatient (CLI) | payer OTHER ==
[~2023-10-20] MED LIST changes: +GADOTERATE MEGLUMINE 5 MMOL/10 ML VIAL IV ONE; +GADOTERATE MEGLUMINE 7.5 MMOL/15 ML VIAL IV ONE
== END | disposition home or self-care (01) ==
LOC: US 01:22
PROVIDERS: ATTEND Family Medicine
DX: I65.23 Occlusion and stenosis of bilateral carotid arteries (principal); R59.1 Generalized enlarged lymph nodes; R42 Dizziness and giddiness; R90.82 White matter disease, unspecified; I67.82 Cerebral ischemia

== ENCOUNTER → 2023-11-04 | Outpatient (CLI) | payer OTHER ==
[~2023-11-04] MED LIST changes: -GADOTERATE MEGLUMINE 5 MMOL/10 ML VIAL IV ONE; -GADOTERATE MEGLUMINE 7.5 MMOL/15 ML VIAL IV ONE; +IOHEXOL 350 MG/ML 100 ML VIAL IV ONE; +SODIUM CHLORIDE 0.9% 100 ML BAG IV ONE
== END | disposition home or self-care (01) ==
LOC: CT 01:56
PROVIDERS: ATTEND Family Medicine
DX: R93.1 Abnormal findings on diagnostic imaging of heart and coronary circulation (principal)

== ENCOUNTER → 2024-06-24 | Outpatient (CLI) | payer OTHER ==
[~2024-06-24] MED LIST changes: -IOHEXOL 350 MG/ML 100 ML VIAL IV ONE; -SODIUM CHLORIDE 0.9% 100 ML BAG IV ONE
[2024-06-24 08:43] LABS: BASO # 0.1 10*3/uL (0.0-0.1); BASO % 0.6 % (0.0-1.0); EOS # 0.2 10*3/uL (0.0-0.4); EOS % 1.6 % (1.0-4.0); HEMATOCRIT 40.4 % (42.0-52.0); MEAN CELL VOLUME 86.1 fl (80.0-94.0); MEAN CORPUSCULAR HGB 26.9 pg (27.0-31.0); MEAN CORPUSCULAR HGB CONC 31.2 g/dl (33.0-37.0); MEAN PLATELET VOLUME 9.6 fl (9.6-12.3); MONO # 0.9 10*3/uL (0.1-1.0); MONO % 8.7 % (3.0-9.0); NEUT # 7.7 10*3/uL (2.3-7.9); NEUT % 71.9 % (47.0-73.0); PLATELET COUNT AUTOMATED 312 10*3/uL (130-400); RED BLOOD COUNT 4.69 10*6/uL (4.50-5.90); RED CELL DISTRI WIDTH 13.9 % (0-14.5); WHITE BLOOD COUNT 10.7 10*3/uL (4.8-10.8)
[2024-06-24 09:27] LABS: ALKALINE PHOSPHATASE 88 U/L (46-116); BUN 14 mg/dl (9-23); CHLORIDE 108 mmol/L (98-107); POTASSIUM 4.5 mmol/L (3.4-5.1); SGPT/ALT 18 U/L (5-49)
== END | disposition home or self-care (01) ==
LOC: LAB 08:12
PROVIDERS: ATTEND Internal Medicine Gastroenterology
DX: K50.10 Crohn's disease of large intestine without complications (principal)

== ENCOUNTER 2024-11-07 17:16 | Emergency (ER) | payer SELFPAY ==
[~2024-11-07] VITALS: Ht 177.8 cm; Wt 107.5 kg
[2024-11-07] MEDS ORDERED: [UNRECOGNIZED DRUG - REMARK] (18:00)
[2024-11-07] MEDS ORDERED: ASPIRIN81 M1 PO (18:00)
[2024-11-07 18:13] LABS: BILIRUBIN Negative (Negative); BLOOD Negative (Negative); CLARITY Clear (Clear); COLOR Yellow (Yellow); KETONE Negative (Negative); LEUKO ESTERASE Trace (Negative); NITRITE Negative (Negative); PH 6.0 (4.5-8.0); SPECIFIC GRAVITY <= 1.005 (1.001-1.030); UROBILINOGEN 0.2 E.U./dl (0.0-1.0)
[2024-11-07 18:13] LABS: BASO # 0.1 10*3/uL (0.0-0.1); BASO % 0.5 % (0.0-1.0); EOS # 0.1 10*3/uL (0.0-0.4); EOS % 0.9 % (1.0-4.0); MEAN CELL VOLUME 85.2 fl (80.0-94.0); MEAN CORPUSCULAR HGB 26.8 pg (27.0-31.0); MEAN PLATELET VOLUME 10.3 fl (9.6-12.3); MONO # 0.9 10*3/uL (0.1-1.0); MONO % 8.0 % (3.0-9.0); NEUT # 8.4 10*3/uL (2.3-7.9); NEUT % 73.9 % (47.0-73.0); NUCLEATED RED BLOOD CELL 0.0 % (0.0-0.0); NUCLEATED RED BLOOD CELL 0.0 10*3/uL (0.0-0.0); PLATELET COUNT AUTOMATED 282 10*3/uL (130-400); RED CELL DISTRI WIDTH 15.9 % (0-14.5)
[2024-11-07 18:20] LABS: URINE AMPHETAMINES Negative (1000ng/ml); URINE BARBITURATES Negative (200ng/ml); URINE BENZODIAZEPINES Negative (200ng/ml); URINE CANNABINOIDS (THC) Negative (50ng/ml); URINE COCAINE Negative (300ng/ml); URINE METHADONE Negative (300ng/ml); URINE OPIATES Negative (300ng/ml); URINE PHENCYCLIDINE Negative (25ng/ml)
[2024-11-07 18:23] LABS: BACTERIA TRACE; RBC 0-2 rbc/hpf (0-2)
[2024-11-07 19:10] LABS: BUN 11 mg/dl (9-23); ETHYL ALCOHOL < 3.0 mg/dl (<3); SGPT/ALT 17 U/L (5-49)
[2024-11-08] MEDS ORDERED: LORazepam 1 MG TAB PO ONE (10:25)
[2024-11-09] MEDS ORDERED: ASPIRIN ENTERIC COATED 81 MG TAB PO ONE (06:50)
[2024-11-09 06:58] VITALS: BP 148/92
== END 2024-11-09 13:20 ==
LOC: ED 17:16
PROVIDERS: Emergency Medicine
DX: F43.21 Adjustment disorder with depressed mood (principal); F32.A Depression, unspecified; F17.200 Nicotine dependence, unspecified, uncomplicated; Z79.82 Long term (current) use of aspirin; Z90.49 Acquired absence of other specified parts of digestive tract